=== PATIENT | female | born 1975 | race Caucasian/White ===

== ENCOUNTER → 2020-12-16 09:54 | Outpatient (BNVA) | payer OTHER, SELFPAY | PROVIDERS: Visit Provider Nurse Practitioner Family | DX: Z20.822 Contact with and (suspected) exposure to COVID-19 (principal) | CPT/HCPCS: 87635 ==

== ENCOUNTER → 2021-08-13 10:31 | Outpatient (BNVA) | payer OTHER, SELFPAY | PROVIDERS: Visit Provider Nurse Practitioner Family | DX: R10.2 Pelvic and perineal pain (principal); M54.50 Low back pain, unspecified; G89.29 Other chronic pain; R53.83 Other fatigue; G47.9 Sleep disorder, unspecified; H61.90 Disorder of external ear, unspecified, unspecified ear | CPT/HCPCS: 72100; 80053; 84443; 85025 ==

== ENCOUNTER → 2021-08-26 14:39 | Outpatient (BNVA) | payer OTHER, SELFPAY | PROVIDERS: Referring Provider Nurse Practitioner Family; Visit Provider Obstetrics & Gynecology | DX: Z12.4 Encounter for screening for malignant neoplasm of cervix (principal); R10.2 Pelvic and perineal pain; R63.5 Abnormal weight gain | CPT/HCPCS: 87624 ==

== ENCOUNTER → 2021-09-03 16:02 | Outpatient (BNVA) | payer OTHER, SELFPAY | PROVIDERS: Visit Provider Obstetrics & Gynecology | DX: R10.2 Pelvic and perineal pain (principal) | CPT/HCPCS: 76830 ==

== ENCOUNTER 2021-09-08 16:22 | Outpatient (CLI) | payer OTHER, SELFPAY | END 2021-09-08 16:23 | disposition home or self-care (01) | LOC: LAB 16:25 | PROVIDERS: Visit Provider Obstetrics & Gynecology | DX: Z32.01 Encounter for pregnancy test, result positive (principal) | CPT/HCPCS: 36415; 81025; 84702 ==

== ENCOUNTER → 2021-09-09 08:28 | Outpatient (BNVA) | payer OTHER, SELFPAY | PROVIDERS: Visit Provider Obstetrics & Gynecology | DX: R87.612 Low grade squamous intraepithelial lesion on cytologic smear of cervix (LGSIL) (principal) | CPT/HCPCS: 88305 ==

== ENCOUNTER 2021-09-17 11:28 | Outpatient (CLI) | payer OTHER, SELFPAY ==
--- NOTE | 2021-09-17 11:45 | US_ITS ---
WS: [id number] Complete ABDOMINAL ULTRASOUND HISTORY: R10.13 - Epigastric pain COMPARISON: None available. Liver: 16.2 cm in length. Mildly enlarged liver with coarse echotexture and hepatic steatosis. No jovanni e duct dilatation or mass. Portal Vein: Normal hepatopetal flow with monophasic waveform. Gallbladder: Normally distended with no gallstones, wall thickening or pericholecystic fluid. Gallbladder wall thickness: 0.2 cm. Pancreas: Normal size and echogenicity. CBD: 0.4 cm. Right kidney: 11.8 cm x 5.7 cm x 4.9 cm. No mass, cortical thickening or hydronephrosis. Left kidney: 10.6 cm x 5.4 cm x 4.6 cm. No mass, cortical thickening or hydronephrosis. Spleen: Normal size and echogenicity. Abdominal aorta and IVC are within normal limits. No ascites. US/US abdomen complete* [id number] IMPRESSION: 1. Normal gallbladder. 2. Mild hepatomegaly and hepatic steatosis. 3. No bile duct dilatation.
== END 2021-09-17 11:29 | disposition home or self-care (01) ==
PROVIDERS: Visit Provider Obstetrics & Gynecology
DX: R10.13 Epigastric pain (principal); R16.0 Hepatomegaly, not elsewhere classified; K76.0 Fatty (change of) liver, not elsewhere classified
CPT/HCPCS: 76700

== ENCOUNTER 2021-11-05 06:22 | Day surgery (SDC) | payer OTHER, SELFPAY ==
[2021-10-31 10:16] VITALS: BMI 29.0
--- NOTE | 2021-11-05 06:46 | P.HP_ITS ---
Same Day Surgery H&P Indication for Procedure/HPI DATE OF PROCEDURE: November 05, 2021 CHIEF COMPLAINT/INDICATIONFOR SURGICAL PROCEDURE: Belly pain PREOP DIAGNOSIS: Epigastric pain PLANNED PROCEDURE: Operation Date: 11/05/21 08:00 Proposed Procedures p Colonoscopy 40158,R10.13,Z12.11(Not Applicable) - Salvador Pak MD 09/18/2021 This is a pleasant 46 years old female patient is referred to my practice with history of constant and throbbing epigastric pain, gets worse with eating and gets better with nothing.? Pain is not being referred but she does have both sides of her upper abdomen involved as well.? Since she had COVID back in November 2020 she started to encounter this vague abdominal pain.? Also associated with diarrhea. Patient reports history of diarrhea, nonbloody in nature, has been going on for quite some time.? Patient denies history of recent travels, antibiotics, change in medications, questionable source of water, no history of sick contacts, no history of thyroid disorders. Patient never had endoscopies before, she did undergo ultrasound of the right upper quadrant and showed normal gallbladder, mild hepatomegaly and hepatic steatosis.? Patient reports history of drinking heavily 11/05/2021 Patient comes today for diagnostic EGD and colonoscopy. Also because of the patient's persistent upper abdominal pain we will request an ultrasound of the abdomen ROS All systems have been reviewed negative except as for the above or per problem list. Medications/Allergies* Allergies/Adverse Reactions Allergy/AdvReac Type Severity Reaction Status Date / Time codeine Allergy rash- hives Verified 11/05/21 06:47 Pertinent History/Comorbid Conditions* Medical History (Updated 09/20/21 @ 09:16 by Salvador Pak MD) No pertinent past medical history Surgical History (Updated 12/18/19 @ 10:09 by DEEJAY Hooper) Hx of hand surgery right hand Hx of left knee surgery Hx of right knee surgery Hx of tubal ligation 1995 Family History (Updated 08/26/21 @ 14:32 by May Dick RN) Diabetes Mother Heart disease Grandfather maternal Hypertension Mother Father Uterine cancer Family/Other, Onset Age: 25 maternal aunt Denies family history of Colon cancer Ovarian cancer Clotting disorder Hyperlipidemia Breast cancer Anesthesia complication Bleeding disorder Thyroid condition Stroke Social History Smoking and tobacco status: never smoked Second hand smoke exposure: No Smoking risk assessment/counseling performed?: No Marital status: Highest education level completed: Some College, No Degree Pertinent Exam Findings alert, oriented x 3, regular rate & rhythm and procedure specific exam findings (Abdominal examination nontender nondistended soft) Recommendations Surgery/Procedure today (EGD and colonoscopy with possible biopsy) Coding Level of Care Code Acute Detailer School Photographs for Valeri Lamas
[2021-11-05 07:06] VITALS: BP 123/84; PULSE 85; RESP 16; TEMP 36.9; O2SAT 99
[2021-11-05] MEDS: sodium chloride 0.9% 1,000 ML 30 ML IV (07:23)
[2021-11-05 07:37] LABS: OR HCG Qualitative Urine Negative (Negative)
--- NOTE | 2021-11-05 07:48 | ANES.PREANE2 ---
Pre-Anesthetic Assessment Height/Weight: Height 1.68 m Weight 81.647 kg Temp Pulse Resp BP Pulse Ox 98.5 F 85 16 123/84 99 11/05/21 07:06 11/05/21 07:06 11/05/21 07:06 11/05/21 07:06 11/05/21 07:06 Preop Diagnosis: Abdominal pain and change in bowel habits Operation Date: 11/05/21 08:00 Proposed Procedures p Colonoscopy 57583,R10.13,Z12.11(Not Applicable) - Salvador Pak MD Familial anesthetic complications: None Was Beta Helder taken within 24 hours: N/A Was Clonidine taken within 24 hours: N/A Last intake: Intake Last Liquid Date 11/04/21 Last Liquid Time 23:00 Last Solid Date 11/03/21 Last Solid Time 17:00 Social No alcohol and No tobacco Exam alert, oriented x 3, clear to auscultation bilaterally and regular rate & rhythm Airway Submandibular: within normal limits Cervical ROM: within normal limits Mallampati: Class I Dentition: full History/ROS No significant complaints Pulmonary None reported CV/HEM None reported HPV Hepatic None reported GI Abdominal pain Weight gain Metabolic None reported Musc/skel None reported Neuropsych None reported Anesthetic Plan ASA status: 2 Anesthesia: Anesthesia Evaluation, General and MAC Other: I discussed with the patient risks, goals, and benefits of MAC and general anesthesia. We discussed spectrum of MAC anesthesia including conversion to general as well as possibility of recall of intraoperative stimuli including discomfort/pain. Patient agrees to proceed with MAC. Risk of > 500 ml blood loss (7ml/kg in children): No Medications/Allergies Home Medications Medication Instructions Recorded Confirmed Last Taken Type trazodone 50 mg tablet 50 mg PO .HS PRN 30 Days #30 tab 08/13/21 10/31/21 Unknown Rx zolpidem 10 mg tablet (Ambien) 10 mg PO .QHS 30 Days #30 tab 09/08/21 10/31/21 Unknown Rx Allergies Allergy/AdvReac Type Severity Reaction Status Date / Time codeine Allergy rash- hives Verified 11/05/21 06:47 Current Medications Generic Name Dose Route Start Last Admin Trade Name Freq PRN Reason Stop Dose Admin Sodium Chloride 1,000 mls @ 30 mls/hr 11/05/21 07:00 11/05/21 07:23 Sodium Chloride 0.9% IV 30 mls/hr .Q24H JENIFFER Administration PFSH Anesthesia Medical History No pertinent past medical history Surgical History Hx of hand surgery right hand Hx of left knee surgery Hx of right knee surgery Hx of tubal ligation 1995 Family History Mother Diabetes Hypertension Father Hypertension Grandfather Heart disease maternal Family/Other Uterine cancer, Onset Age: 25 maternal aunt Denies family history of Colon cancer Ovarian cancer Clotting disorder Hyperlipidemia Breast cancer Anesthesia complication Bleeding disorder Thyroid condition Stroke Social History Smoking and tobacco status: never smoked Second hand smoke exposure: No Smoking risk assessment/counseling performed?: No Marital status: Highest education level completed: Some College, No Degree Data Anesthesia Cardiac Studies: No Data to Display
[2021-11-05 08:28] VITALS: BP 116/78; PULSE 72; RESP 16; TEMP 36.2; O2SAT 99
[2021-11-05 09:03] VITALS: BP 121/82; PULSE 77; RESP 18; O2SAT 100
--- NOTE | 2021-11-05 12:47 | ANE.PACU2 ---
Inpatient post-anesthesia follow up: Airway intact: Yes Vital signs: Temperature 97.2 F Pulse Rate 77 Respiratory Rate 18 Blood Pressure 121/82 Pulse Oximetry 100 Oxygen Delivery Me thod Room Air Oxygen Flow Rate Fraction of Inspir ed Oxygen Hydration adequate: Yes Nausea and vomiting: No Pain level: 1 Mental status: Baseline
== END 2021-11-05 09:12 | disposition home or self-care (01) ==
PROVIDERS: Anesthesiology; Visit Provider Surgery
PROC: 0DJD8ZZ Inspection of Lower Intestinal Tract, Via Natural or Artificial Opening Endoscopic (ICD-10-PCS; CPT 45378; principal; 2021-11-05 08:00)
PROC: 0DJ08ZZ Inspection of Upper Intestinal Tract, Via Natural or Artificial Opening Endoscopic (ICD-10-PCS; CPT 43235; 2021-11-05 08:00)
DX: Z12.11 Encounter for screening for malignant neoplasm of colon (principal); R10.13 Epigastric pain; K21.00 Gastro-esophageal reflux disease with esophagitis, without bleeding; K29.80 Duodenitis without bleeding; K29.70 Gastritis, unspecified, without bleeding; Z82.49 Family history of ischemic heart disease and other diseases of the circulatory system; Z83.3 Family history of diabetes mellitus; Z80.0 Family history of malignant neoplasm of digestive organs; Z80.49 Family history of malignant neoplasm of other genital organs
CPT/HCPCS: 43239; 45378; 82274; 83630; 84703; 87493; 87506; 88305; J2704; J7030

== ENCOUNTER 2021-11-27 10:35 | Outpatient (CLI) | payer OTHER, SELFPAY ==
--- NOTE | 2021-11-27 10:00 | NM_ITS ---
WS: [id number] NUCLEAR MEDICINE HIDA SCAN WITH GALLBLADDER EJECTION FRACTION HISTORY: Abdominal pain. RIGHT upper quadrant pain for one year. COMPARISON: Ultrasound 09/17/2021 TECHNIQUE: The patient was intravenously injected with 6.9 mCi of TC99m Mebrofenin. Immediate imaging over the right upper quadrant was followed by 5 minute image and additional images for a total of 60 minutes. Normal uptake of radiotracer throughout the liver. Activity identified in the gallbladder at 30 minutes and well distended by 60 minutes. Activity in the proximal small bowel was seen by 20 minutes. Good washout of the radiotracer from the liver by 60 minutes. The patient then drank 8 ounces of Ensure Plus. Ejection fraction at 60 minutes was 71%. Normal GB ej ection fraction is 35-75%. Post fatty meal symptoms: None. NM/NM hepatobiliary w phar* [id number] IMPRESSION: 1. Normal HIDA scan. 2. Normal gallbladder ejection fraction.
== END 2021-11-27 10:36 | disposition home or self-care (01) ==
PROVIDERS: Visit Provider Surgery
DX: R10.13 Epigastric pain (principal)
CPT/HCPCS: 78227; A9537

== ENCOUNTER → 2021-12-10 10:34 | Outpatient (BNVA) | payer OTHER, SELFPAY | PROVIDERS: Visit Provider Nurse Practitioner Family | DX: G89.29 Other chronic pain (principal); R10.9 Unspecified abdominal pain; R16.0 Hepatomegaly, not elsewhere classified; R79.89 Other specified abnormal findings of blood chemistry | CPT/HCPCS: 80053; 86705; 86706; 86709; 86803; 87340 ==

== ENCOUNTER → 2022-05-04 15:29 | Outpatient (BNVA) | payer OTHER, SELFPAY | PROVIDERS: Visit Provider Nurse Practitioner Family | DX: R07.9 Chest pain, unspecified (principal); E55.9 Vitamin D deficiency, unspecified | CPT/HCPCS: 71046; 80053; 82306; 84443; 84484; 85025 ==

== ENCOUNTER 2022-05-15 14:03 | Emergency (ER) | payer OTHER, SELFPAY ==
[2022-05-15 14:10] VITALS: BP 151/101; PULSE 109; RESP 18; TEMP 36.7; O2SAT 99
[2022-05-15 16:51] VITALS: BP 108/68; PULSE 117; RESP 18; O2SAT 99
[2022-05-15 17:25] LABS: Basophils # 0.1 10^3/uL (0.0-0.1); Basophils % 0.8 %; Eosinophils # 0.1 10^3/uL (0.0-0.8); Eosinophils % 0.7 %; Hematocrit 40.6 % (37.0-47.0); Hemoglobin 12.9 g/dL (11.5-15.3); Lymphocytes # 3.2 10^3/uL (0.8-4.8); Lymphocytes % 31.5 %; Mean Corpuscular HGB Conc 31.8 g/dL (30.0-36.0); Mean Corpuscular Hemoglobin 30.1 pg (28.0-34.0); Mean Corpuscular Volume 94.9 fl (81-99); Monocytes # 0.6 10^3/uL (0.2-0.9); Monocytes % 5.9 %; Neutrophils # 6.15 10^3/uL (1.8-7.7); Neutrophils % 60.7 %; Nucleated Red Blood Cells % 0 %; Platelet Count 366 10^3/cmm (130-400); Red Blood Count 4.28 10^6/uL (4.1-5.3); Red Cell Distribution Width 13.8 % (12.1-15.1); White Blood Count 10.1 10^3/uL (4.0-10.0)
[2022-05-15 17:30] LABS: Alanine Aminotransferase 106 U/L (0-33); Albumin Level 4.8 g/dL (3.5-5.2); Alkaline Phosphatase 91 U/L (35-105); Anion Gap 15.8 (5-19); Aspartate Amino Transferase 71 U/L (0-32); Blood Urea Nitrogen 13 mg/dL (6-20); Calcium 9.7 mg/dL (8.5-10.5); Carbon Dioxide 26 mmol/L (22-29); Chloride 100 mmol/L (98-107); Globulin 3.5 g/dL (1.3-4.6); Glomerular Filtration Rate 76.9 mL/min (90-130); Glucose 114 mg/dL (65-115); Lipase 52 U/L (13-60); Osmolality Calculated 287 mOsm/kg (285-295); Potassium 3.8 mmol/L (3.5-5.1); Sodium 138 mmol/L (136-145); Total Bilirubin 0.4 mg/dL (0.15-1.2); Total Protein 8.3 g/dL (6.6-8.7)
--- NOTE | 2022-05-15 17:55 | W.ED.ABDPA2 ---
HPI - Abdominal Pain General: Chief Complaint: Abdominal Pain Stated Complaint: Chest and rib pain Time Seen by Provider: 05/15/22 17:55 History of Present Illness: Ms. Colvin is a 46-year-old lady presenting to the emergency department for abdominal pain. She reports symptoms for approximately 1 year ago, constant and intense recently. Pain is epigastric and burning. Moderate to severe intensity. Denies associated time or component. No other specific changes in health, exacerbating, or alleviating factors identified. Onset (ago): month(s) Pain Consistency: intermittent Location: Epigastric Severity: severe Quality: aching and burning Radiation: none Migration to: no migration Exacerbating factors: nothing Relieving factors: nothing Associated Symptoms: Reports nausea and poor appetite; Denies coffee ground emesis, hematochezia and hematemesis Review of Systems General: Reports: 10 or more systems reviewed and unremarkable except in HPI and below GI: Reports: nausea; Denies: hematemesis, coffee ground emesis or hematochezia PFSH ED PFSH: Medical History Esophagitis Gastritis and duodenitis No pertinent past medical history Surgical History Hx of hand surgery right hand Hx of left knee surgery Hx of right knee surgery Hx of tubal ligation 1995 Family History Mother Diabetes Hypertension Father Hypertension Grandfather Heart disease maternal Family/Other Uterine cancer, Onset Age: 25 maternal aunt Denies family history of Colon cancer Ovarian cancer Clotting disorder Hyperlipidemia Breast cancer Anesthesia complication Bleeding disorder Thyroid condition Stroke Social History Smoking and tobacco status: never smoked Second hand smoke exposure: No Smoking risk assessment/counseling performed?: No Marital status: Highest education level completed: Some College, No Degree Physical Exam Const: COMMON NORMALS: alert GENERAL APPEARANCE: cooperative and well developed HENMT: COMMON NORMALS: normocephalic and atraumatic HEAD & SCALP: normocephalic and atraumatic Eye: COMMON NORMALS: conjunctivae normal CONJUNCTIVA: Yes conjunctivae normal SCLERA: sclerae normal Neck/C-Spine: COMMON NORMALS: supple GENERAL: Yes trachea midline Resp: COMMON NORMALS: clear to auscultation bilaterally EFFORT & INSPECTION: Yes able to speak in complete sentences AUSCULTATION: clear to auscultation bilaterally Cardio: COMMON NORMALS: regular rate and regular rhythm RATE: regular rate RHYTHM: regular rhythm GI: COMMON NORMALS: Soft to palpation PALPATION: Yes Soft to palpation, Yes Tenderness to palpation present (GI), No Guarding due to palpation present (GI) and No Rigid due to palpation PERCUSSION: normal to percussion Extremity: GENERAL: Yes normal exam except as noted and No edema Neuro: COMMON NORMALS: moves all extremities SENSORIUM/ORIENTATION: Yes alert and No Orientation impaired Psych: COMMON NORMALS: mental status grossly normal and Normal thought process present THOUGHT PROCESS: Normal thought process present Course Vital Signs: Vital signs: Vital Signs Temperature 98.0 F 05/15/22 14:10 Pulse Rate 117 H 05/15/22 16:51 Respiratory Rate 18 05/15/22 16:51 Blood Pressure 108/68 05/15/22 16:51 Pulse Oximetry 99 05/15/22 16:51 Oxygen Delivery Me thod 05/15/22 16:51 MDM - Abdominal Pain Medical Decision Making 46-year-old lady presenting with abdominal pain that has gotten worse. Patient is nontoxic in appearance and there is no evidence of acute surgical abdomen. Labs with minimal leukocytosis, hemoglobin is normal, normal platelet count. Metabolic panel without significant electrolyte derangement, transaminitis again noted of unclear etiology. hCG is negative. Urinalysis concerning for urinary tract infection. Overall similar to recent prior. I discussed risks of radiation exposure with the patient and reviewed prior imaging which has not included CT imaging.. I believe that CT imaging is reasonable given severity and persistent nature of the patient's symptoms. Patient wishes to proceed. CT head notable for no acute findings to clearly explain symptoms. The patient does have hepatic steatosis, discussed ovarian cyst with the patient. Most likely etiology of patient's symptoms is unspecified epigastric pain. This may be secondary to nonalcoholic fatty liver with mild inflammation which was discussed with patient. Additionally I will treat her UTI. Patient is able to tolerate p.o. intake and feels improved with fluids, antiemetic, analgesia. She was also given a dose of Rocephin in the emergency department. Plan to discharge with course of Keflex, antiemetic, analgesia. The results of ED evaluation were discussed with the patient including prescriptions and/or symptomatic cares (if applicable) including appropriate and responsible use, followup plan, and return precautions. The patient verbalized understanding and felt safe for discharge. Medical Records I reviewed the patient's medical records. Lab Data I reviewed the patient's lab results. 05/15/22 16:59 05/15/22 16:59 Labs/Radiology: Radiology Impressions Abdomen/Pelvis CT 05/15/22 18:04 IMPRESSION: 1. Negative for focal acute inflammatory process in the abdomen or pelvis. 2. Hepatic steatosis. 3. Left ovary 12 mm cyst, likely follicular. 4. Fluid in the uterine cavity, likely related to menstrual status. Laboratory Results WBC 10.1 10^3/uL (4.0-10.0) H 05/15/22 16:59 RBC 4.28 10^6/uL (4.1-5.3) 05/15/22 16:59 Hgb 12.9 g/dL (11.5-15.3) 05/15/22 16:59 Hct 40.6 % (37.0-47.0) 05/15/22 16:59 MCV 94.9 fl (81-99) 05/15/22 16:59 MCH 30.1 pg (28.0-34.0) 05/15/22 16:59 MCHC 31.8 g/dL (30.0-36.0) 05/15/22 16:59 RDW 13.8 % (12.1-15.1) 05/15/22 16:59 Plt Count 366 10^3/cmm (130-400) 05/15/22 16:59 MPV 9.0 fL (7.4-10.4) 05/15/22 16:59 Neut % (Auto) 60.7 % 05/15/22 16:59 Lymph % (Auto) 31.5 % 05/15/22 16:59 Donley % (Auto) 5.9 % 05/15/22 16:59 Eos % (Auto) 0.7 % 05/15/22 16:59 Baso % (Auto) 0.8 % 05/15/22 16:59 Neut # (Auto) 6.15 10^3/uL (1.8-7.7) 05/15/22 16:59 Lymph # (Auto) 3.2 10^3/uL (0.8-4.8) 05/15/22 16:59 Donley # (Auto) 0.6 10^3/uL (0.2-0.9) 05/15/22 16:59 Eos # (Auto) 0.1 10^3/uL (0.0-0.8) 05/15/22 16:59 Baso # (Auto) 0.1 10^3/uL (0.0-0.1) 05/15/22 16:59 Nucleated RBC % (auto) 0 % 05/15/22 16:59 Nucleated RBCs # 0.0 /100WBC 05/15/22 16:59 Sodium 138 mmol/L (136-145) 05/15/22 16:59 Potassium 3.8 mmol/L (3.5-5.1) 05/15/22 16:59 Chloride 100 mmol/L (98-107) 05/15/22 16:59 Carbon Dioxide 26 mmol/L (22-29) 05/15/22 16:59 Anion Gap 15.8 (5-19) 05/15/22 16:59 BUN 13 mg/dL (6-20) 05/15/22 16:59 Creatinine 0.8 mg/dL (0.5-0.9) 05/15/22 16:59 GFR Calculation 76.9 mL/min (90-130) L 05/15/22 16:59 Glucose 114 mg/dL (65-115) 05/15/22 16:59 Calculated Osmolality 287 mOsm/kg (285-295) 05/15/22 16:59 Calcium 9.7 mg/dL (8.5-10.5) 05/15/22 16:59 Total Bilirubin 0.4 mg/dL (0.15-1.2) 05/15/22 16:59 AST 71 U/L (0-32) H 05/15/22 16:59 ALT 106 U/L (0-33) H 05/15/22 16:59 Alkaline Phosphatase 91 U/L (35-105) 05/15/22 16:59 Total Protein 8.3 g/dL (6.6-8.7) 05/15/22 16:59 Albumin 4.8 g/dL (3.5-5.2) 05/15/22 16:59 Globulin 3.5 g/dL (1.3-4.6) 05/15/22 16:59 Lipase 52 U/L (13-60) 05/15/22 16:59 HCG, Qual Negative (Negative) 05/15/22 18:11 Urine Color Dark yellow (Yellow) 05/15/22 18:11 Urine Appearance Hazy (CLEAR) A 05/15/22 18:11 Urine pH 5 (5-7) 05/15/22 18:11 Ur Specific [place] 1.025 (1.005-1.030) 05/15/22 18:11 Urine Protein Trace (Negative) 05/15/22 18:11 Urine Glucose (UA) Norm (Normal) 05/15/22 18:11 Urine Ketones 1+ (Negative) H 05/15/22 18:11 Urine Blood 2+ (Negative) H 05/15/22 18:11 Urine Nitrate Positive (Negative) H 05/15/22 18:11 Urine Bilirubin Neg (Negative) 05/15/22 18:11 Urine Urobilinogen Norm mg/dL (Negative) 05/15/22 18:11 Ur Leukocyte Esterase Negative (Negative) 05/15/22 18:11 Urine RBC 0-4 /hpf (0-2) H 05/15/22 18:11 Urine WBC 5-10 /hpf (0-5) H 05/15/22 18:11 Ur Squamous Epith Cells 0-4 /hpf (0-5) H 05/15/22 18:11 Amorphous Sediment Not Reportable 05/15/22 18:11 Urine Bacteria 4+ /hpf (NONE) H 05/15/22 18:11 Discharge Plan Discharge Patient Disposition: Home Clinical Impression: Epigastric pain, Hepatic steatosis, Transaminitis, UTI (urinary tract infection) Condition: Stable Prescriptions: New ondansetron 4 mg tablet,disintegrating 4 mg PO Q8H PRN (Reason: nausea and vomiting) Qty: 15 0RF oxycodone 5 mg tablet 5 mg PO Q4H PRN (Reason: pain) Qty: 10 0RF Continued pantoprazole 40 mg tablet,delayed release (DR/EC) 40 mg PO DAILY 30 Days Qty: 30 3RF No Action zolpidem [Ambien] 10 mg tablet 10 mg PO .QHS 30 Days Qty: 30 0RF citalopram [Celexa] 20 mg tablet 20 mg PO DAILY Qty: 30 5RF cholecalciferol (vitamin D3) 1,250 mcg (50,000 unit) capsule 50,000 unit PO .weekly Qty: 4 2RF Discharge Orders: Discharge ED (Routine); Ordered 05/15/22 Ordered By: Jayesh Dobson Referrals: Shanon Morales FNP-[facility] [Primary Care Provider] - Discharge Diet: Advance as tolerated and Clear Liquid Discharge Activity: Increase activity as tolerated Patient Instructions: Urinary Tract Infection in Women (ED), Non-Alcoholic Fatty Liver Disease (ED), Abdominal Pain (ED), Opioid Safety Activity Restrictions/Additional Instructions: Thank you for visiting the emergency department. You were seen and about for abdominal pain. The exact cause of your symptoms is unclear. You were found to have a urinary tract infection which will be treated. I recommend continued follow-up with gastroenterology and your primary care provider. Please continue your Protonix. Return to the emergency department for uncontrolled symptoms or anything else that you are concerned about a feel needs emergency department evaluation. Coding Level of Care Code ED Accounts Receivable Administrator for Valeri Lamas
--- NOTE | 2022-05-15 18:04 | CTR_ITS ---
PROCEDURE INFORMATION: Exam: CT Abdomen And Pelvis With Contrast Exam date and time: 05/15/2022 7:06 PM Age: 46 years old Clinical indication: Abdominal pain; Localized; Left upper quadrant (luq); Additional info: Epigastric pain, luq pain TECHNIQUE: Imaging protocol: Computed tomography of the abdomen and pelvis with contrast. Radiation optimization: All CT scans at this facility use at least one of these dose optimization techniques: automated exposure control; mA and/or kV adjustment per patient size (includes targeted exams where dose is matched to clinical indication); or iterative reconstruction. Contrast material: OMNI 350; Contrast volume: 100 ml; Contrast route: INTRAVENOUS (IV); COMPARISON: NM hepatobiliary w phar* [id number] 11/27/2021 10:00 AM RADIATION DOSE METRICS: Total DLP (mGy-cm): 654.93 FINDINGS: Liver: Hepatic steatosis. Gallbladder and bile ducts: Normal. No calcified stones. No ductal dilation. Pancreas: Normal. No ductal dilation. Spleen: Normal. No splenomegaly. Adrenal glands: Normal. No mass. Kidneys and ureters: Normal. No hydronephrosis. Stomach and bowel: Unremarkable. No obstruction. No mucosal thickening. Appendix: No evidence of appendicitis. Intraperitoneal space: Unremarkable. No free air. No significant fluid collection. Vasculature: Unremarkable. No abdominal aortic aneurysm. Lymph nodes: Unremarkable. No enlarged lymph nodes. Urinary bladder: Unremarkable as visualized. Reproductive: Left ovary 12 mm cyst, likely follicular. Fluid in the uterine cavity, likely related to menstrual status. Bones/joints: Unremarkable. No acute fracture. Soft tissues: Unremarkable. CT/CT abdomen pelvis w con* [id number] IMPRESSION: 1. Negative for focal acute inflammatory process in the abdomen or pelvis. 2. Hepatic steatosis. 3. Left ovary 12 mm cyst, likely follicular. 4. Fluid in the uterine cavity, likely related to menstrual status.
[2022-05-15 18:22] LABS: HCG Qualitative Urine. Negative (Negative)
--- NOTE | 2022-05-15 18:59 | PC.NURSE ---
REPORT GIVEN TO PERLA MOORE.
[2022-05-15] MEDS: iohexol 350 mg/mL 500 mL Btl (per mL) IV (19:00)
[2022-05-15] MEDS: sodium chloride 0.9% 1,000 ML 999 ML IV (19:22)
[2022-05-15] MEDS: ondansetron 2 mg/ML SDV 2 mL 4 MG IVP (19:22)
[2022-05-15] MEDS: dicyclomine 10 mg Capsule PO (19:22)
[2022-05-15] MEDS: metoclopramide 10 mg Tablet 5 MG PO (20:06)
[2022-05-15] MEDS: fentaNYL 50 mcg/mL INJ 2mL IVP (20:06)
[2022-05-15] MEDS: alum-mag-hydroxide-sime 30 mL UDC PO (20:06)
[2022-05-15 20:16] LABS: Add Urine Culture? Yes; Add Urine Microscopic? YES; Bacteria Urine 4+ /hpf; Bilirubin Urine Neg (Negative); Blood Urine 2+ (Negative); Glucose Urine UA Norm (Normal); Ketones Urine 1+ (Negative); Leukocyte Esterase Urine Negative (Negative); Nitrate Urine Positive (Negative); Protein Urine Trace (Negative); RBC Urine 0-4 /hpf (0-2); Specific Gravity, Urine 1.025 (1.005-1.030); Squamous Epithelial Cell Urine 0-4 /hpf (0-5); Urine Appearance Hazy (CLEAR); Urine Color Dark Yellow (Yellow); Urobilinogen Urine Norm (Negative); pH Urine 5 (5-7)
[2022-05-15] MEDS: cefTRIAXone 1,000 MG in sodium chloride 0.9% (plus) 50 ML 100 MG IV (20:29)
== END 2022-05-15 20:52 | disposition home or self-care (01) ==
PROVIDERS: Emergency Provider Emergency Medicine; PCP Nurse Practitioner Family
DX: K76.0 Fatty (change of) liver, not elsewhere classified (principal); R74.01 Elevation of levels of liver transaminase levels; N39.0 Urinary tract infection, site not specified
CPT/HCPCS: 36415; 74177; 80053; 81001; 81025; 83690; 85025; 87077; 87086; 87186; 96365; 96375; 99285; J0696; J2405; J3010; J7030; J8597; Q9967

== ENCOUNTER → 2023-05-04 08:22 | Outpatient (BNVA) | payer BC, MEDICAID, SELFPAY | PROVIDERS: PCP Nurse Practitioner Family; Visit Provider Family Medicine | DX: R10.13 Epigastric pain (principal); I10 Essential (primary) hypertension; M79.2 Neuralgia and neuritis, unspecified; E03.9 Hypothyroidism, unspecified; Z79.899 Other long term (current) drug therapy | CPT/HCPCS: 80053; 85025; 86140 ==

== ENCOUNTER → 2023-05-12 14:29 | Outpatient (BNVA) | payer BC, MEDICAID, SELFPAY | PROVIDERS: PCP Family Medicine; Visit Provider Nurse Practitioner | DX: M17.11 Unilateral primary osteoarthritis, right knee; M25.561 Pain in right knee; G89.29 Other chronic pain | CPT/HCPCS: 73560; 73565 ==

== ENCOUNTER 2023-06-04 16:45 | Outpatient (CLI) | payer BC, MEDICAID, SELFPAY ==
--- NOTE | 2023-06-04 17:00 | CT_ITS ---
WS: [id number] CT RIGHT knee, noncontrast HISTORY: knee pain TECHNIQUE: Protocol for FABI total knee replacement has been obtained. This includes axial imaging th rough the RIGHT hip, RIGHT knee and RIGHT ankle. DLP: 922.43 mGy.cm COMPARISON: 05/12/2023 Pelvis: No fracture. No bone destruction. No significant joint space narrowing. Soft tissues are norm al. RIGHT knee: Severe tricompartment osteoarthritis. Osteophytes and joint space narrowing. Moderate siz e joint effusion. RIGHT ankle: No destructive bone process. IMPRESSION: CT imaging provided for [employer] robotic total knee replacement.
== END 2023-06-04 16:46 | disposition home or self-care (01) ==
LOC: RAD 16:45
PROVIDERS: Visit Provider Nurse Practitioner
DX: M25.561 Pain in right knee (principal)
CPT/HCPCS: 73700

== ENCOUNTER → 2023-06-09 13:14 | Outpatient (BNVA) | payer BC, MEDICAID, SELFPAY | PROVIDERS: Referring Provider Nurse Practitioner; Visit Provider Nurse Practitioner | DX: M25.569 Pain in unspecified knee (principal); M17.11 Unilateral primary osteoarthritis, right knee; R10.13 Epigastric pain; I10 Essential (primary) hypertension; M79.2 Neuralgia and neuritis, unspecified | CPT/HCPCS: 80053; 85025; 85651 ==

== ENCOUNTER → 2023-06-10 14:27 | Outpatient (BNVA) | payer BC, MEDICAID, SELFPAY | PROVIDERS: Visit Provider Family Medicine | DX: Z01.818 Encounter for other preprocedural examination (principal) | CPT/HCPCS: 81003; 87086 ==

== ENCOUNTER 2023-06-15 09:47 | Observation (INO) | payer BC, MEDICAID, SELFPAY ==
[2023-06-15] VITALS (22 sets, daily range): BP systolic 101–150; BP diastolic 72–101; PULSE 73–112; RESP 12–22; TEMP 36.1–37; O2SAT 95–100; BMI 28.8
[2023-06-15] MEDS: sodium chloride 0.9% 1,000 ML 30 ML IV (06:23)
[2023-06-15] MEDS: scopolamine 1.5 Patch 1 PATCH TRANSDERMA (06:26)
[2023-06-15] MEDS: acetaminophen 1,000 MG/100 ML PIGGYBACK 400 MG IV ×3 (06:26→20:31)
[2023-06-15] MEDS: CELEcoxib 200 mg Capsule 400 MG PO (06:27)
[2023-06-15] MEDS: gabapentin 300 mg Capsule PO ×3 (06:27→20:30)
--- NOTE | 2023-06-15 06:51 | ANES.PREANE2 ---
Pre-Anesthetic Assessment Height/Weight: Height 1.68 m Weight 81.193 kg Temp Pulse Resp BP Pulse Ox O2 Del Method 97.4 F L 112 H 18 150/101 98 Room Air 06/15/23 06:08 06/15/23 06:08 06/15/23 06:08 06/15/23 06:08 06/15/23 06:08 06/15/23 06:08 Operation Date: 06/15/23 07:00 Proposed Procedures p [facility] Total Knee Arthroplasty(Right) - Shaila Campoverde MD Familial anesthetic complications: None Was Beta Helder taken within 24 hours: N/A Was Clonidine taken within 24 hours: N/A Last intake: Intake Last Liquid Date 06/14/23 Last Liquid Time 15:00 Last Solid Date 06/14/23 Last Solid Time 17:00 Social No alcohol and No tobacco Exam alert, oriented x 3, clear to auscultation bilaterally and regular rate & rhythm Airway Mallampati: Class II Dentition: full Pulmonary None reported CV/HEM Hypertension Anesthetic Plan ASA status: 3 Anesthesia: Regional (specify below) (Spinal + Adductor) Risk of > 500 ml blood loss (7ml/kg in children): Yes, adequate IV access and fluids planned Medications/Allergies Home Medications Medication Instructions Recorded Confirmed Last Taken Type cholecalciferol (vitamin D3) 1,250 50,000 unit PO .weekly #4 caps 05/06/22 06/14/23 05/24/23 Rx mcg (50,000 unit) capsule ondansetron 4 mg disintegrating 4 mg PO Q8H PRN nausea and 05/15/22 06/15/23 Unknown Rx tablet vomiting #15 tabs lactobacillus combination no.9 4 4,000 mmu cells PO DAILY #30 caps 06/16/22 06/15/23 05/16/23 Rx billion cell capsule (Adult 50 Plus Probiotic) gabapentin 300 mg capsule 300 mg PO TID #90 caps 03/16/23 06/14/23 06/14/23 Rx amitriptyline 50 mg tablet 50 mg PO DAILY neuropathic pain 05/04/23 06/14/23 06/12/23 Rx #30 tabs tramadol 100 mg tablet 100 mg PO Q6H PRN breakthrough 05/15/23 06/14/23 06/14/23 Rx pain, severe #120 tabs Allergies Allergy/AdvReac Type Severity Reaction Status Date / Time codeine Allergy rash- hives Verified 06/14/23 10:06 Current Medications Generic Name Dose Route Start Last Admin Trade Name Valeriano PRN Reason Stop Dose Admin Sodium Chloride 1,000 mls @ 30 mls/hr 06/15/23 06:00 06/15/23 06:23 Sodium Chloride 0.9% IV 06/16/23 05:59 30 mls/hr .Q24H JENIFFER Administration PFSH Anesthesia Medical History Primary osteoarthritis of right knee Esophagitis Gastritis and duodenitis No pertinent past medical history Surgical History Hx of left knee surgery Hx of right knee surgery Hx of hand surgery right hand Hx of tubal ligation 1995 Family History Mother Diabetes Hypertension Father Hypertension Grandfather Heart disease maternal Family/Other Uterine cancer, Onset Age: 25 maternal aunt Denies family history of Colon cancer Ovarian cancer Clotting disorder Hyperlipidemia Breast cancer Anesthesia complication Bleeding disorder Thyroid disease Stroke Social History Smoking and tobacco/nicotine status: never used tobacco/nicotine Second hand smoke exposure: No Alcohol intake: unknown Substance/Drug Use: unknown Adopted: No Caregiver/support person: No Lives independently: Yes Household members: spouse Housing: House Marital status: Highest education level completed: Some College, No Degree Do you think of yourself as: Straight/Heterosexual Current gender identity: Female Female Reproductive History Date of last menstrual period: 05/15/23 Data Anesthesia Cardiac Studies: No Data to Display
--- NOTE | 2023-06-15 06:57 | P.HPUD_ITS ---
Surgery/Procedure H&P Update DATE OF PROCEDURE: June 15, 2023 DATE H&P PERFORMED: 06/10/23 H&P UPDATE INFORMATION: I have reviewed H&P completed within last 30 days, I have examined patient prior to procedure, No changes to prior documentation and H&P is in [facility] EMR on date indicated PLANNED PROCEDURE: Operation Date: 06/15/23 07:00 Proposed Procedures p Dominguez Robot Total Knee Arthroplasty(Right) - Shaila Campoverde MD Related Problem List Diagnoses (1) Hx of right knee surgery:
[2023-06-15] MEDS: ceFAZolin 2,000 MG in sodium chloride 0.9% (plus) 50 ML 100 MG IV ×3 (07:00→23:37)
--- NOTE | 2023-06-15 07:23 | ANES.PROC ---
Anesthesia Procedures Procedure/Date: 06/15/23 Nerve Block ^: Nerve Block 1: Main Anesthesia: spinal anesthesia block Time Out Performed: Yes Consent: requested by attending/covering physician, from patient, from other, risks and benefits reviewed and patient agrees to proceed Nerve block location: adductor canal (R) Anesthesia monitors applied: pulse oximetry, EKG, BP cuff and oxygen Nerve block position: supine Anesthetic Used: ropivicaine 0.5% (30 ml) and with decadron (4 mg) Ultrasound used to: recognize landmarks Nerve Stimulator Used?: No Interscalene/Femoral BLK: 4 stimuplex 21 g needle used for position and inplane approach, visualize local anesthetic spread and no vascular puncture identified Injection: neg aspiration of heme Patient Tolerated Procedure: well and no complications Complications: none
[2023-06-15] MEDS: tranexamic acid 1,000 mg/10mL SDV 1000 MG IV (07:48)
[2023-06-15] MEDS: ceFAZolin 1,000 mg SDV 2000 MG IRRIGATION (08:34)
[2023-06-15] MEDS: BUPivacaine liposome 13.3 mg/mL SDV 10 mL 266 MG INFILTRATI (08:58)
[2023-06-15] MEDS: vancomycin 1,000 MG SDV 1000 MG XX (08:58)
[2023-06-15] MEDS: BUPivacaine 0.5% INJ 30 mL 20 ML INJECTION (08:58)
--- NOTE | 2023-06-15 10:29 | P.OP_ITS ---
Operative Report Date of procedure: June 15, 2023 Pre-op diagnosis: Degenerative osteoarthritis with valgus deformity right knee Post-op diagnosis: Degenerative osteoarthritis with valgus deformity right knee Post-op findings: Severe degenerative changes within the knee with very large osteophytes and severe valgus deformity. Complete denudement of cartilage. Procedure done: Right total knee arthroplasty with Dominguez Guidance Implants: The Lary total knee system with a size 4 triathlon beaded cruciate retaining femur right, a triathlon titanium tibial component size 4 beaded, a triathlon X3 tibial bearing CS insert size 4 X 11 mm and a beaded triathlon titanium asymmetric patella size 32 x 10 mm Specimens removed/disposition: Bone, disposed of Pathology: None Surgeon: Shiala Campoverde MD Forms Builder: Alaina Diehl, nurse practitioner, who services were essential for positioning, retraction, closure, and completion of the surgical procedure Anesthesia: Spinal (With MAC and supplemental adductor block, ASA 3) Estimated blood loss (mL): 180 Tourniquet time (min): 0 (Not utilized) IV fluids (mL): 1,400 Urine output (mL): 600 Complications: None Findings: Severe valgus deformity, partially correctable with large osteophytes over the femur, patella, and tibia. Severe degenerative osteoarthritis with denudement of cartilage. Condition: stable Disposition: PACU (Then admit to floor under observation status) Brief History: This 47-year-old woman presented to the office initially for right knee pain. She related a history of chronic knee pain and instability for the 15 years prior to being seen with acute worsening over the past 6 to 8 months prior to her initial visit. She denied any acute injury, but she was very active in sports throughout her life. She thought that she perhaps had ACL reconstruction in the past. She had significant interference with her activities of daily living. At rest, she had no pain, but when she attempted to ambulate, her pain worsened significantly. After discussion, due to the patient's severe valgus deformity and degenerative changes, the patient was advised that the only treatment would be total knee arthroplasty. Risks and complications were discussed with her and consents were signed in the office. Questions were answered. Procedure: The patient was brought to the operating theater, and after undergoing spinal anesthetic, with supplemental adductor canal block, ASA 3, the right lower extremity was prepped with Dura-Prep and draped in usual fashion following placement of a tourniquet high on the leg. The leg was then draped free.? Tourniquet was not elevated during the case.? A surgical pause was performed, and at the time of the surgical pause, we confirmed the site and side of surgery. Additionally, we confirmed the appropriate and timely administration of preoperative antibiotics, Ancef 2 g and Transexemic acid 1 g.? The availability of equipment was confirmed, and the patient's identity was verbalized as well. Following the surgical pause, an incision was made centering over the patella continuing proximally and distally as necessary to allow access to the knee joint. The distal portion of the patient's previous anterolateral knee incision was incorporated into her incision. Dissection continued through skin and soft tissues using a scalpel. Hemostasis was obtained using electrocautery. The skin incision was followed by a median parapatellar arthrotomy. The leg was extended and the patella was able to be displaced laterally.? Appropriate arrays and markers were placed in appropriate position for use of the Dominguez.? Preoperative planning had been accomplished and was discussed in detail with the [facility] retail field representative.? Intraoperative mapping of the femur and tibia was accomplished after the arrays were placed.? Internal markers were also placed.? Once we had accomplished the Dominguez mapping, we began the appropriate resections for placement of the prosthesis.? The plan was for a posterior cruciate retaining right total knee arthroplasty. Once appropriate mapping had been accomplished retraction was established using manual retraction by surgical technicians and also the Dominguez leg positioner and retractors.? The knee was evaluated.? There was significant osteoarthritic change as well as very significant valgus deformity.? Appropriate bone resection was accomplished using the Dominguez.? The femur was sized to a size 4.? Following femoral cuts, attention was directed to the tibia.? Osteophytes were removed prior to this portion of the procedure.? We had performed a minimal medial release at the beginning of the procedure to allow for placement of the array.? Proximal tibia was evaluated, and it was felt that appropriate size for the tibia was a size 4.? Tray was noted to fit nicely with good coverage.? Rim fit was accomplished with the size 4. A trial reduction was accomplished after osteophytes have been removed as well as the medial and lateral menisci.? We had removed the anterior cruciate ligament remnants at the beginning of the case and preserved the posterior cruciate ligament.? Trial reduction was accomplished with a size 4 femoral cruciate retaining component and a size 4 TriTanium tibial tray.? Initially, trial was accomplished with a 9 mm insert, and subsequently, we increased to a s ize 10 mm insert for trial. With the [address], we elected to proceed to place an 11 mm insert for the actual component. Alignment was felt to be appropriate as well.? Trial components were removed after the femur had been drilled.? Prior to removal of the tibial tray which had been pinned in position with appropriate rotation as determined by the Dominguez plan, we broached the tibia.? Subsequently, the 4 drill holes were made for the prosthetic component.? All trial components were removed, and the wound was irrigated.? Plans were made for insertion of the prosthetic components.? Prior to this, the patella was manually prepared.? After resection of the articular surface with the jogging system, it was measured and measured a 32 mm patella.? We resected approximately 11 mm of patella.? Patellar height was restored with the patellar component. Once again, the wound was irrigated.? The Tritanium tibia was impacted into position.? The beaded femur was then impacted into position in a cementless fashion. The CS tibial insert was placed prior to placement of the femoral component. The patella was pressed into position with a patellar clamp.? Exparel was injected about the components deep and superficially.? The knee was then copiously irrigated with betadine and saline and suctioned dry. Attention was then directed to closure. Closure was accomplished with 0 Vicryl in the fascial tissues.? The suture line of 0 Vicryl was supplemented with strata fix, #1, with a running stitch from proximal to distal and a second running stitch from distal to proximal.? This was followed by Surgiflo and vancomycin powder.? Following this, a 2-0 Monocryl was used in the subcutaneous tissues, and the skin was closed with 3-0 Strata fix.? Care was taken to assure an excellent subcutaneous as well as skin closure.? A sterile dressing was then placed consisting of Dermabond Prineo, OpSite, ABD, sterile soft roll, and an Justin wrap including over the foot. The patient was returned the Recovery Room in a satisfactory condition. X-rays were obtained and reviewed there.? The patient will be discharged to the floor for postoperative rehabilitation and pain management. Related Problem List Diagnoses (1) Primary osteoarthritis of right knee:
--- NOTE | 2023-06-15 10:33 | XR_ITS ---
WS: [id number] KNEE RIGHT TECHNIQUE: 2 views of the right knee CLINICAL INFORMATION: Status post total knee arthroplasty, right COMPARISON: 05/12/2023 FINDINGS: Postoperative changes RIGHT TKA. Patella prosthesis. Expected postoperative changes with soft tissue edema and postoperative air. Hardware appears in good position. IMPRESSION: Normal RIGHT TKA for postoperative purposes. Kellgren-Onrth Classification: NA
[2023-06-15] MEDS: ondansetron 2 mg/ML SDV 2 mL 4 MG IVP ×2 (10:47→11:02)
--- NOTE | 2023-06-15 11:15 | ANE.PACU2 ---
Inpatient post-anesthesia follow up: Airway intact: Yes Vital signs: Temperature 98.4 F Pulse Rate 89 Respiratory Rate 16 Blood Pressure 117/76 Pulse Oximetry 96 Oxygen Delivery Me thod Room Air Oxygen Flow Rate Fraction of Inspir ed Oxygen Hydration adequate: Yes Nausea and vomiting: No Pain level: 1 Mental status: Baseline
[2023-06-15] MEDS: CELEcoxib 200 mg Capsule PO ×2 (12:18→23:37)
[2023-06-15] MEDS: oxyCODONE 5 mg IR Tab/Cap PO ×3 (12:18→20:30)
[2023-06-15] MEDS: chlorhexidine gluconate 0.12% Btl 473 mL 30 ML MUCOUS MEM ×2 (12:20→20:31)
[2023-06-15] MEDS: iron polysaccharide complex 150 mg Capsule PO (17:08)
[2023-06-15] MEDS: morphine 4 mg/mL SDV 1 mL IVP ×2 (17:45→21:45)
[2023-06-15] MEDS: dicyclomine 20 mg Tablet PO (17:45)
[2023-06-15] MEDS: TRAMadol 50 mg Tablet PO (23:38)
[2023-06-16] VITALS (10 sets, daily range): BP systolic 114–123; BP diastolic 72–80; PULSE 76–94; RESP 16–20; TEMP 36.5–36.8; O2SAT 96–98
[2023-06-16] MEDS: oxyCODONE 5 mg IR Tab/Cap PO ×3 (00:48→12:19)
[2023-06-16] MEDS: acetaminophen 1,000 MG/100 ML PIGGYBACK 400 MG IV (03:37)
[2023-06-16] MEDS: morphine 4 mg/mL SDV 1 mL IVP ×2 (03:51→09:58)
[2023-06-16 05:22] LABS: Basophils % 0.4 %; Eosinophils % 0.4 %; Lymphocytes # 1.9 10^3/uL (0.8-4.8); Lymphocytes % 22.8 %; Mean Corpuscular HGB Conc 31.9 g/dL (30-55); Mean Corpuscular Volume 94.1 fl (85-98); Neutrophils # 5.29 10^3/uL (1.8-7.7); Neutrophils % 63.9 %; Nucleated Red Blood Cells % 0 %; Platelet Count 235 10^3/cmm (157-399); Red Blood Count 2.87 10^6/uL (3.85-5.65); Red Cell Distribution Width 12.7 % (12.1-15.1); White Blood Count 8.26 10^3/uL (3.29-11.43)
[2023-06-16 05:43] LABS: Anion Gap 14.6 (5-19); Blood Urea Nitrogen 15 mg/dL (6-20); Calcium 8.3 mg/dL (8.5-10.5); Carbon Dioxide 22 mmol/L (22-29); Chloride 104 mmol/L (98-107); Creatinine Clr Calc Pharmacy 109.9039; Glomerular Filtration Rate 89.3 mL/min (90-130); Glucose 121 mg/dL (65-115); Osmolality Calculated 286 mOsm/kg (285-295); Potassium 3.6 mmol/L (3.5-5.1); Sodium 137 mmol/L (136-145)
[2023-06-16] MEDS: ceFAZolin 2,000 MG in sodium chloride 0.9% (plus) 50 ML 100 MG IV (06:31)
[2023-06-16] MEDS: iron polysaccharide complex 150 mg Capsule PO (08:04)
[2023-06-16] MEDS: aspirin 325 mg EC Tablet PO (08:04)
[2023-06-16] MEDS: gabapentin 300 mg Capsule PO (08:04)
[2023-06-16] MEDS: dicyclomine 20 mg Tablet PO (08:04)
[2023-06-16] MEDS: amitriptyline 25 mg Tablet 50 MG PO (08:04)
[2023-06-16] MEDS: chlorhexidine gluconate 0.12% Btl 473 mL 30 ML MUCOUS MEM (08:06)
[2023-06-16] MEDS: TRAMadol 50 mg Tablet PO ×2 (08:09→13:58)
[2023-06-16] MEDS: CELEcoxib 200 mg Capsule PO (10:57)
[2023-06-16] MEDS: acetaminophen 500 mg Tablet 1000 MG PO (10:57)
--- NOTE | 2023-06-16 13:51 | P.DS_ITS ---
Discharge Providers Date of Admission: 06/15/23 09:47 Date of Discharge: June 16, 2023 Attending Provider at Admission: Shaila Campoverde MD Attending Provider at Discharge: Shaila Campoverde MD Diagnoses at Discharge Discharge Diagnosis (1) Primary osteoarthritis of right knee: Status: Acute (2) Status post total right knee replacement not using cement: Status: Acute Permanent problem details: Date of procedure: June 15, 2023 Diagnosis: Degenerative osteoarthritis with valgus deformity right knee Procedure done: Right total knee arthroplasty with Dominguez Guidance Implants: The Lary total knee system with a size 4 triathlon beaded cruciate retaining femur right, a triathlon titanium tibial component size 4 beaded, a triathlon X3 tibial bearing CS insert size 4 X 11 mm and a beaded triathlon titanium asymmetric patella size 32 x 10 mm Reason for Visit Reason for Visit: M17.11 Brief History: This 47-year-old woman presented to the office initially for right knee pain. She related a history of chronic knee pain and instability for the 15 years prior to being seen with acute worsening over the past 6 to 8 months prior to her initial visit. She denied any acute injury, but she was very active in sports throughout her life. She thought that she perhaps had ACL reconstruction in the past. She had significant interference with her activities of daily living. At rest, she had no pain, but when she attempted to ambulate, her pain worsened significantly. After discussion, due to the patient's severe valgus deformity and degenerative changes, the patient was advised that the only treatment would be total knee arthroplasty. Risks and complications were discussed with her and consents were signed in the office. Questions were answered. Hospital Course Hospital Course The patient presented for same-day right total knee arthroplasty. On the evening following surgery, she had significant discomfort and difficulty with p ain management, however, by the morning, she had her pain under control and wished to be discharged to home. She felt confident that she would be able to manage at home. And physical therapy was comfortable that she was stable. Therefore, after physical therapy on the day of discharge, the patient was discharged home on postop day 1 with no complications. She will follow-up with me in the office as scheduled. There was no evidence of DVT or other issue of concern. Physical Exam Const: COMMON NORMALS: no acute distress, average body habitus, patient oriented x3 and alert GENERAL APPEARANCE: cooperative and comfortable ORIENTATION/CONSCIOUSNESS: Yes awake HENMT: COMMON NORMALS: normocephalic and atraumatic HEAD & SCALP: normocephalic and atraumatic Eye: GENERAL EYE: appearance normal, both eyes and all related structures Chest: COMMONS NORMALS: normal inspection of the chest Resp: COMMON NORMALS: normal respiratory effort EFFORT & INSPECTION: Yes able to speak in complete sentences and Yes symmetric chest movement Extremity: RIGHT LOWER EXTREMITY: Yes knee joint (Dressing was dry and intact. No evidence of DVT) Neuro: COMMON NORMALS: patient oriented x3 SENSORIUM/ORIENTATION: Yes alert Psych: COMMON NORMALS: mental status grossly normal APPEARANCE: Yes grossly normal ATTITUDE: Yes calm and Yes engaged ATTENTION/CONCENTRATION: Yes attention grossly intact Skin: COMMON NORMALS: no rashes or lesions noted GENERAL SKIN EXAM: no rashes or lesions noted Urinary Catheter Management: [place]: Cath Placed During This Visit: yes, but has since been removed by the nurse Reason for Continuing Indwelling Catheter: Decision to DC Catheter Urinary Catheter Date of Insertion: 06/15/23 Urinary Catheter Time of Insertion: 07:38 Date Urinary Catheter Removed: 06/15/23 Time Urinary Catheter Discontinued: 16:25 Discharge Data Studies Completed and Pending Completed Studies During Hospitalization Category Date Time Status XR knee RT 1-2V 54953 Routine Exams 06/15/23 10:33 Completed Pending at discharge Category Date Time Status Complete Blood Count w/Auto AM LABS Lab 06/17/23 04:00 Ordered Complete Blood Count w/Auto AM LABS Lab 06/18/23 04:00 Ordered Laboratory Results WBC 8.26 10^3/uL (3.29-11.43) 06/16/23 05:03 RBC 2.87 10^6/uL (3.85-5.65) L 06/16/23 05:03 Hgb 8.60 g/dL (11.27-16.99) L 06/16/23 05:03 Hct 27.0 % (36-47) L 06/16/23 05:03 MCV 94.1 fl (85-98) 06/16/23 05:03 MCH 30.0 pg (27-33) 06/16/23 05:03 MCHC 31.9 g/dL (30-55) 06/16/23 05:03 RDW 12.7 % (12.1-15.1) 06/16/23 05:03 Plt Count 235 10^3/cmm (157-399) 06/16/23 05:03 MPV 9.0 fL (7.4-10.4) 06/16/23 05:03 Neut % (Auto) 63.9 % 06/16/23 05:03 Lymph % (Auto) 22.8 % 06/16/23 05:03 [place] % (Auto) 12.0 % 06/16/23 05:03 Eos % (Auto) 0.4 % 06/16/23 05:03 Baso % (Auto) 0.4 % 06/16/23 05:03 Neut # (Auto) 5.29 10^3/uL (1.8-7.7) 06/16/23 05:03 Lymph # (Auto) 1.9 10^3/uL (0.8-4.8) 06/16/23 05:03 [place] # (Auto) 1.0 10^3/uL (0.2-0.9) H 06/16/23 05:03 Eos # (Auto) 0.0 10^3/uL (0.0-0.8) 06/16/23 05:03 Baso # (Auto) 0.0 10^3/uL (0.0-0.1) 06/16/23 05:03 Nucleated RBC % (auto) 0 % 06/16/23 05:03 Nucleated RBCs # 0.0 /100WBC 06/16/23 05:03 Sodium 137 mmol/L (136-145) 06/16/23 05:03 Potassium 3.6 mmol/L (3.5-5.1) 06/16/23 05:03 Chloride 104 mmol/L (98-107) 06/16/23 05:03 Carbon Dioxide 22 mmol/L (22-29) 06/16/23 05:03 Anion Gap 14.6 (5-19) 06/16/23 05:03 BUN 15 mg/dL (6-20) 06/16/23 05:03 Creatinine 0.7 mg/dL (0.5-0.9) 06/16/23 05:03 GFR Calculation 89.3 mL/min (90-130) L 06/16/23 05:03 Glucose 121 mg/dL (65-115) H 06/16/23 05:03 Calculated Osmolality 286 mOsm/kg (285-295) 06/16/23 05:03 Calcium 8.3 mg/dL (8.5-10.5) L 06/16/23 05:03 Vitals Last Vital Signs Temp 97.8 F 06/16/23 11:25 Pulse 76 06/16/23 11:25 Resp 16 06/16/23 12:19 BP 123/80 06/16/23 11:25 Pulse Ox 97 06/16/23 11:25 O2 Del Method Room Air 06/16/23 11:25 Discharge Plan Discharge Patient Disposition: Home Health Service Condition: Stable Prescriptions: New celecoxib 200 mg Capsule 200 mg PO 1XD 30 Days Qty: 30 0RF acetaminophen 500 mg Tablet 1,000 mg PO Q8H 15 Days Qty: 90 0RF aspirin 325 mg Tablet,Delayed Release (Dr/Ec) 325 mg PO DAILY 30 Days Qty: 30 0RF oxycodone 10 mg tablet 10 mg PO Q4H PRN (Reason: Moderate Pain) 7 Days Qty: 30 0RF Continued gabapentin 300 mg capsule 300 mg PO TID Qty: 90 5RF Adult 50 Plus Probiotic 4 billion cell capsule 4,000 mmu cells PO DAILY Qty: 30 5RF Rx Instructions: may substitute for in stock or patient preference cholecalciferol (vitamin D3) 1,250 mcg (50,000 unit) capsule 50,000 unit PO .weekly Qty: 4 2RF ondansetron 4 mg tablet,disintegrating 4 mg PO Q8H PRN (Reason: nausea and vomiting) Qty: 15 0RF No Action tramadol 100 mg tablet 100 mg PO Q6H PRN (Reason: breakthrough pain, severe) Qty: 120 0RF amitriptyline 50 mg tablet 50 mg PO DAILY Qty: 30 1RF Discharge Orders: Discharge Order (Routine); Ordered 06/16/23 Ordered By: Shaila Campoverde Referrals: Shaila Campoverde MD [Physician] - 06/28/23 2:45 pm Discharge Diet: Advance as tolerated and Usual diet Discharge Activity: Increase activity as tolerated, Limit activity as instructed, Use walker/crutches as instructed and As per PT/OT instructions Patient Instructions: Aspirin (By mouth), Oxycodone, Rapid Release (By mouth), Celecoxib (By mouth), Total Knee Replacement (GEN), Joint Replacement Stoplight, Opioid Safety Activity Restrictions/Additional Instructions: Ice to right knee. Gait training, strengthening, and range of motion per physical therapy. You may advance weightbearing and walking as instructed per PT. You may shower and get the knee wet as long as the plastic dressing is in place. If this begins to leak, you may remove the plastic dressing. Elevate right lower extremity. Discharge Attestations Time Spent in Discharge Care*: greater than 30 min Specific Discharge Activities: educating patient, documenting/other paperwork and evaluating patient/reviewing data Quality Metrics Clinical Quality Measures [ No reported AMI, CVA or VTE this stay] Coding Level of Care Code Acute Code for Chg Fwd Diagnoses Primary osteoarthritis of right knee M17.11 Status post total right knee replacement not using cement Z96.651
--- NOTE | 2023-06-16 14:13 | PC.NURSE ---
Discharge Note Patient discharged to home via private vehicle accompanied by daughter. Discharge instructions reviewed with patient and/or healthcare representative. Mobile pharmacy medications and/or prescriptions provided. Belongings/home medications returned.
== END 2023-06-16 14:14 | disposition home health service (06) ==
LOC: MEDSURG 09:52
PROVIDERS: Nurse Practitioner; Admitting Provider Specialist; Visit Provider Specialist
PROC: 8E0Y0CZ Robotic Assisted Procedure of Lower Extremity, Open Approach (ICD-10-PCS; CPT 27447; principal; 2023-06-15 07:00)
DX: M17.11 Unilateral primary osteoarthritis, right knee (principal); M21.061 Valgus deformity, not elsewhere classified, right knee
CPT/HCPCS: 20985; 27447; 36415; 51702; 73560; 80048; 81025; 85025; 97110; 97116; 97161; 97165; C1713; C1776; C9290; G0378; J0131; J0690; J1100; J2250; J2270; J2405; J2704; J2795; J3370; J3490; J7030

== ENCOUNTER → 2023-06-28 14:33 | Outpatient (BNVA) | payer BC, MEDICAID, SELFPAY | PROVIDERS: PCP Family Medicine; Visit Provider Nurse Practitioner | DX: Z96.651 Presence of right artificial knee joint (principal); M17.11 Unilateral primary osteoarthritis, right knee | CPT/HCPCS: 73560; 73565 ==

== ENCOUNTER → 2023-09-10 09:44 | Outpatient (BNVA) | payer BC, MEDICAID, SELFPAY | PROVIDERS: PCP Family Medicine; Referring Provider Family Medicine; Visit Provider Surgery | DX: R10.13 Epigastric pain (principal); R19.7 Diarrhea, unspecified | CPT/HCPCS: 36415; 86003; 86008 ==

== ENCOUNTER 2023-10-20 07:01 | Day surgery (SDC) | payer BC, MEDICAID, SELFPAY ==
[2023-10-20 07:17] VITALS: BP 156/102; PULSE 80; RESP 18; TEMP 36.3; O2SAT 97; BMI 27.4
[2023-10-20] MEDS: sodium chloride 0.9% 1,000 ML 30 ML IV (07:26)
[2023-10-20 08:24] LABS: OR HCG Qualitative Urine Positive (Negative)
[2023-10-20 08:27] LABS: HCG, Serum Qual Positive (Negative)
--- NOTE | 2023-10-20 09:00 | PM.HP ---
Providers/Chief Complaint Primary Care Provider: Clarence Jones DO Chief Complaint: R19.7 History of Present Illness Sarah Colvin is a 48 year old female Review of Systems General: Reports: 10 or more systems reviewed and unremarkable except in HPI and below Medications/Allergies Home Medications Medication Instructions Recorded Confirmed Last Taken Type oxycodone 10 mg tablet 10 - 20 mg (1 - 2 x 10 mg) PO BID 10/01/23 10/20/23 10/20/23 Rx PRN Moderate Pain 30 days #120 tabs gabapentin 300 mg capsule 300 - 600 mg PO .qpm PRN Pain 10/18/23 10/20/23 10/19/23 History Allergies Allergy/AdvReac Type Severity Reaction Status Date / Time No Known Allergies Allergy Verified 10/19/23 08:31 PFSH Acute PFSH: Medical History Primary osteoarthritis of right knee Esophagitis Gastritis and duodenitis No pertinent past medical history Surgical History Hx of left knee surgery Hx of right knee surgery Hx of hand surgery right hand Hx of tubal ligation 1995 Family History Mother Diabetes Hypertension Father Hypertension Grandfather Heart disease maternal Family/Other Uterine cancer, Onset Age: 25 maternal aunt Denies family history of Colon cancer Ovarian cancer Clotting disorder Hyperlipidemia Breast cancer Anesthesia complication Bleeding disorder Thyroid disease Stroke Social History Smoking and tobacco/nicotine status: never used tobacco/nicotine Second hand smoke exposure: No Alcohol intake: unknown Substance/Drug Use: unknown Adopted: No Caregiver/support person: No Lives independently: Yes Household members: spouse Housing: House Marital status: Highest education level completed: Some College, No Degree Do you think of yourself as: Straight/Heterosexual Current gender identity: Female Vitals/I&O/Wt Last Vital Signs Temp 97.4 F L 10/20/23 07:17 Pulse 80 10/20/23 07:17 Resp 18 10/20/23 07:17 BP 156/102 10/20/23 07:17 Pulse Ox 97 10/20/23 07:17 O2 Del Method Room Air 10/20/23 07:17 Weight last 48 hrs Weight 170 lb A&P Assessment and plan (1) Epigastric pain: (2) Diarrhea: Plan EGD and colonoscopy Attestations Medical Necessity Statement*: Home Coding Level of Care Code Acute Code for Chg Fwd Diagnoses Epigastric pain R10.13 Diarrhea R19.7
--- NOTE | 2023-10-20 09:04 | ANES.PREANE2 ---
Pre-Anesthetic Assessment Height/Weight: Height 1.68 m Weight 77.111 kg Temp Pulse Resp BP Pulse Ox O2 Del Method 97.4 F L 80 18 156/102 97 Room Air 10/20/23 07:17 10/20/23 07:17 10/20/23 07:17 10/20/23 07:17 10/20/23 07:17 10/20/23 07:17 Operation Date: 10/20/23 08:00 Proposed Procedures p EGD, 70602, 70690, G0105, R19.7,R10.13(Not Applicable) - Jaison Carbone DO s Colonoscopy(Not Applicable) - Jaison Carbone DO Familial anesthetic complications: None Was Beta Helder taken within 24 hours: N/A Last intake: Intake Last Liquid Date 10/19/23 Last Liquid Time 20:00 Last Solid Date 10/18/23 Last Solid Time 22:00 Social No alcohol and No tobacco Airway Mallampati: Class II Dentition: full CV/HEM Hypertension Anesthetic Plan ASA status: 2 Anesthesia: MAC Risk of > 500 ml blood loss (7ml/kg in children): No Other Pertinent Information 48 yo patient wit history of tubal ligation who presents with positive test. 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 Will proceed with colonoscopy today and get urgent transvaginal US to r/o ectopic in this patient. Medications/Allergies Home Medications Medication Instructions Recorded Confirmed Last Taken Type oxycodone 10 mg tablet 10 - 20 mg (1 - 2 x 10 mg) PO BID 10/01/23 10/20/23 10/20/23 Rx PRN Moderate Pain 30 days #120 tabs gabapentin 300 mg capsule 300 - 600 mg PO .qpm PRN Pain 10/18/23 10/20/23 10/19/23 History Allergies Allergy/AdvReac Type Severity Reaction Status Date / Time No Known Allergies Allergy Verified 10/19/23 08:31 Current Medications Generic Name Dose Route Start Last Admin Trade Name Freq PRN Reason Stop Dose Admin Sodium Chloride 1,000 mls @ 30 mls/hr 10/20/23 07:15 10/20/23 07:26 Sodium Chloride 0.9% IV 10/21/23 07:14 30 mls/hr .Q24H JENIFFER Administration PFSH Anesthesia Medical History Primary osteoarthritis of right knee Esophagitis Gastritis and duodenitis No pertinent past medical history Surgical History Hx of left knee surgery Hx of right knee surgery Hx of hand surgery right hand Hx of tubal ligation 1995 Family History Mother Diabetes Hypertension Father Hypertension Grandfather Heart disease maternal Family/Other Uterine cancer, Onset Age: 25 maternal aunt Denies family history of Colon cancer Ovarian cancer Clotting disorder Hyperlipidemia Breast cancer Anesthesia complication Bleeding disorder Thyroid disease Stroke Social History Smoking and tobacco/nicotine status: never used tobacco/nicotine Second hand smoke exposure: No Alcohol intake: unknown Substance/Drug Use: unknown Adopted: No Caregiver/support person: No Lives independently: Yes Household members: spouse Housing: House Marital status: Highest education level completed: Some College, No Degree Do you think of yourself as: Straight/Heterosexual Current gender identity: Female Data Anesthesia Cardiac Studies: No Data to Display
--- NOTE | 2023-10-20 09:09 | SUR.OPER ---
Epi 2.5 mL (1 mg in 10 mL NS) given per interject needle per Dr. Carbone during EGD.
--- NOTE | 2023-10-20 09:23 | US_ITS ---
WS: [id number] EARLY OBSTETRICAL ULTRASOUND (<14 WEEKS). HISTORY: Positive w/ hx of tubal COMPARISON: 09/03/2021 Transvaginal imaging is performed. There is no intrauterine gestation identified. Thin endometrium wi th no thickening or hyperplasia. Endometrium measures approximately 4 mm. There is no gestational sac . The LEFT ovary is identified measuring 2.1 x 0.8 x 1.9 cm. Normal vascularity. The RIGHT ovary is not identified. No adnexal masses suspicious for ectopic . There is no free fluid in the pelvis . US/US OB lmt with transvaginal IMPRESSION: 1. No intrauterine gestation identified. If there is a positive beta hCG ectop ic is not excluded. 2. No secondary findings of ectopic in the adnexa. No free fluid.
[2023-10-20 09:25] VITALS: BP 116/76; PULSE 93; RESP 20; TEMP 36.6; O2SAT 98
[2023-10-20] MEDS: EPINEPHrine 1 mg/mL INJ XX (09:33)
[2023-10-20 09:40] VITALS: BP 124/89; PULSE 69; RESP 20; O2SAT 96
[2023-10-20] MEDS: ondansetron 2 mg/ML SDV 2 mL 4 MG IVP (09:42)
--- NOTE | 2023-10-20 10:15 | PC.NURSE ---
Patient taken to waiting room via w/c for transvaginal ultrasound. All personal belongings with patient. at side.
--- NOTE | 2023-10-20 10:15 | ANE.PACU2 ---
Inpatient post-anesthesia follow up: Airway intact: Yes Vital signs: Temperature 97.9 F Pulse Rate 69 Respiratory Rate 20 Blood Pressure 124/89 Pulse Oximetry 96 Oxygen Delivery Me thod Room Air Oxygen Flow Rate Fraction of Inspir ed Oxygen Hydration adequate: Yes Nausea and vomiting: No Pain level: 1 Mental status: Baseline
[2023-10-20 10:43] LABS: C.Diff PCR (Lab) NEGATIVE (Negative)
--- NOTE | 2023-10-20 12:07 | PC.NURSE ---
Spoke with Maykel in Ultrasound. Transvaginal ultrasound is complete. Patient may be discharged out of the computer.
== END 2023-10-20 12:07 | disposition home or self-care (01) ==
PROVIDERS: Anesthesiology; PCP Family Medicine; Visit Provider Surgery
PROC: 0DJ08ZZ Inspection of Upper Intestinal Tract, Via Natural or Artificial Opening Endoscopic (ICD-10-PCS; CPT 43235; principal; 2023-10-20 08:00)
PROC: 0DJD8ZZ Inspection of Lower Intestinal Tract, Via Natural or Artificial Opening Endoscopic (ICD-10-PCS; CPT 45378; 2023-10-20 08:00)
DX: R19.7 Diarrhea, unspecified (principal); R10.13 Epigastric pain; K29.50 Unspecified chronic gastritis without bleeding; K21.00 Gastro-esophageal reflux disease with esophagitis, without bleeding; I10 Essential (primary) hypertension
CPT/HCPCS: 36415; 43239; 45380; 76815; 76817; 81025; 82274; 83630; 84703; 87045; 87177; 87209; 87427; 87449; 87493; 88305; 88342; J0171; J2405; J2704; J7030

== ENCOUNTER → 2023-10-25 12:55 | Outpatient (BNVA) | payer BC, MEDICAID, SELFPAY | PROVIDERS: PCP Family Medicine; Visit Provider Family Medicine | DX: Z32.01 Encounter for pregnancy test, result positive (principal); K20.90 Esophagitis, unspecified without bleeding; M79.2 Neuralgia and neuritis, unspecified | CPT/HCPCS: 84702 ==

== ENCOUNTER → 2023-12-10 14:25 | Outpatient (BNVA) | payer BC, MEDICAID, SELFPAY | PROVIDERS: PCP Family Medicine; Visit Provider Obstetrics & Gynecology | DX: Z32.01 Encounter for pregnancy test, result positive (principal) | CPT/HCPCS: 83001; 84443; 84702; 87624 ==

== ENCOUNTER → 2024-01-10 12:58 | Outpatient (BNVA) | payer BC, MEDICAID, SELFPAY | PROVIDERS: PCP Family Medicine; Visit Provider Obstetrics & Gynecology | DX: R87.619 Unspecified abnormal cytological findings in specimens from cervix uteri (principal) | CPT/HCPCS: 81025 ==

== ENCOUNTER → 2024-02-04 13:17 | Outpatient (BNVA) | payer BC, MEDICAID, SELFPAY | PROVIDERS: PCP Family Medicine; Visit Provider Obstetrics & Gynecology | DX: N91.2 Amenorrhea, unspecified (principal); N92.6 Irregular menstruation, unspecified | CPT/HCPCS: 81025; 83001 ==

== ENCOUNTER → 2024-11-06 11:48 | Outpatient (BNVA) | payer BC, MEDICAID, SELFPAY | PROVIDERS: PCP Family Medicine; Visit Provider Family Medicine | DX: K85.90 Acute pancreatitis without necrosis or infection, unspecified (principal) | CPT/HCPCS: 80053; 83690 ==